=== PATIENT | male | born 1965 | race Caucasian/White ===

== ENCOUNTER 2019-04-15 21:28 | Emergency (ER) | payer BC, OTHER ==
--- NOTE | 2019-04-15 22:26 | EDM.PDOC ---
ED HPI GENERAL MEDICAL PROBLEM - General Chief Complaint: General Stated Complaint: Anxiety, Heart skipping beats Time Seen by Provider: 04/15/19 21:40 History Limitations: Reports: No Limitations - History of Present Illness INITIAL COMMENTS - FREE TEXT/NARRATIVE: Patient presented to the ED because of anxiety and he feels skip beats. Denies any palpitations,headache, dizziness. He just want to be checked. He drinks 3 cups of coffee a day and smokes almost a PPD. - Related Data Allergies Allergy/AdvReac Type Severity Reaction Status Date / Time Penicillins Allergy Hives Verified 04/15/19 22:00 Home Meds: Home Meds NK [No Known Home Meds] 04/15/19 [History] Past Medical History - Past Surgical History GI Surgical History: Reports: Appendectomy Musculoskeletal Surgical History: Reports: Other (See Below) Other Musculoskeletal Surgeries/Procedures:: Surgery on left knee. Social & Family History - Tobacco Use Smoking Status *Q: Current Every Day Smoker Years of Tobacco use: 25 Packs/Tins Daily: 0.5 - Recreational Drug Use Recreational Drug Use: No ED ROS GENERAL - Review of Systems Review Of Systems: See Below Constitutional: Reports: No Symptoms HEENT: Reports: No Symptoms Respiratory: Reports: No Symptoms Cardiovascular: Reports: Other. Denies: Chest Pain, Dyspnea on Exertion, Lightheadedness, Palpitations (skip beats) Endocrine: Reports: No Symptoms GI/Abdominal: Reports: No Symptoms : Reports: No Symptoms Musculoskeletal: Reports: No Symptoms Skin: Reports: No Symptoms Neurological: Reports: No Symptoms Psychiatric: Reports: No Symptoms Hematologic/Lymphatic: Reports: No Symptoms Immunologic: Reports: No Symptoms ED EXAM, GENERAL - Physical Exam Exam: See Below Exam Limited By: No Limitations General Appearance: Alert, WD/WN, No Apparent Distress Eye Exam: Bilateral Eye: PERRL Back Exam: Normal Inspection, Full Range of Motion Extremities: Normal Inspection, Normal Range of Motion, Non-Tender Neurological: Alert, Oriented, CN II-XII Intact, Normal Cognition, Normal Gait, Normal Reflexes, No Motor/Sensory Deficits Psychiatric: Normal Affect, Normal Mood Skin Exam: Warm, Dry, Intact, Normal Color Lymphatic: No Adenopathy Course - Vital Signs Text/Narrative:: labs reviewed and discussed with patient I told him to cut on his caffeine intake, nicotine and to be treated for his anxiety Last Recorded V/S: Last Vital Signs Temp 36.6 C 04/15/19 21:30 Pulse 74 04/15/19 22:00 Resp 18 04/15/19 22:00 BP 143/79 H 04/15/19 22:00 Pulse Ox 97 04/15/19 22:00 - Orders/Labs/Meds Orders: Active Orders 24 hr Category Date Time Status EKG Documentation Completion [RC] ASDIRECTED Care 04/15/19 21:45 Active EKG 12 Lead [EK] Routine Ther 04/15/19 21:45 Ordered Departure - Departure Time of Disposition: 22:25 Disposition: Home, Self-Care 01 Condition: Good Clinical Impression: PVCs (premature ventricular contractions) - Discharge Information Instructions: Premature Ventricular Contraction Referrals: Fide Villarreal [employer]W LEADER [Primary Care Provider] - Forms: ED Department Discharge Additional Instructions: please read discharge instructions on PVC's Avoid caffeine,nicotine,alcohol If you have problem with anxiety follow up with your doctor so he can manage your anxiety with medications - My Orders Last 24 Hours: My Active Orders 04/15/19 21:45 EKG Documentation Completion [RC] ASDIRECTED EKG 12 Lead [EK] Routine - Assessment/Plan Last 24 Hours: My Active Orders 04/15/19 21:45 EKG Documentation Completion [RC] ASDIRECTED EKG 12 Lead [EK] Routine
== END 2019-04-15 22:40 | disposition home or self-care (01) ==
LOC: FB.ED 21:28
DX: I49.3 Ventricular premature depolarization (principal); F17.210 Nicotine dependence, cigarettes, uncomplicated; Z88.0 Allergy status to penicillin
CPT/HCPCS: 93005; 99283-25

== ENCOUNTER 2019-06-16 06:20 | Day surgery (SDC) | payer BC ==
[2019-06-16] MEDS ORDERED: Propofol 200 MG/20 ML SDV IV ONE (06:21)
[2019-06-16] MEDS ORDERED: Glycopyrrolate 0.2 MG/ML 5 ML MDV IV ONE (06:21)
[2019-06-16] MEDS ORDERED: Lidocaine 1% PF 2 ML SDV INJECT ONE (06:21)
[2019-06-16] MEDS ORDERED: Sodium Chloride 0.9% 10 ML Syringe FLUSH PRN (06:45)
[2019-06-16] MEDS: Lactated Ringers 1,000 ML IV SCH ×2 (07:15→09:16)
--- NOTE | 2019-06-16 08:10 | PREOP ---
ADMISSION DATE: 06/16/2019 CHIEF COMPLAINT: Need for followup colonoscopy, history of hemorrhoids. INDICATIONS FOR PROCEDURE: This is a patient who follows up for colonoscopy. His last one was 10 years, it was negative. Does note some occasional swelling of hemorrhoidal tissue with spotting. No significant GI issues. His family history was negative. MEDICATIONS: 1. Vitamin D2 5000 units 1 time a week. 2. Kenalog cream 0.1% applied to the affected area 2 times a day. 3. Thera-M tablets 1 time per day. 4. He has an albuterol inhaler 108/90 base mcg per use 2 puffs every 4 to 6 hours as needed for shortness of breath. ALLERGIES: He has an allergy to penicillin which results in hives. PAST MEDICAL HISTORY: He has a significant medical history for tobacco use and situational anxiety. PAST SURGICAL HISTORY: Significant for appendectomy, cholecystectomy, esophagogastroduodenoscopy, and knee arthroscopy. REVIEW OF SYSTEMS: HEENT: The patient notes some occasional runny nose. Otherwise HEENT is negative. Eyes: Negative. RESPIRATORY: Negative. CARDIOVASCULAR: Negative. GASTROINTESTINAL: Occasional spotting. GENITOURINARY: Positive for some difficulty with urination. ALLERGIES: He has environmental allergies. NEUROLOGIC: Negative. PHYSICAL EXAMINATION: GENERAL: This is a well-developed, well-nourished white male, appearing in no acute distress. VITAL SIGNS: Stable. He is afebrile. HEENT: Grossly within normal limits. LUNGS: Clear to auscultation. HEART: Had a regular rate and rhythm. ABDOMEN: Soft, nontender. ASSESSMENT: History of hemorrhoids. Need for colonoscopy screening. PLAN: C-scope procedure and risks explained to the patient to include bleeding, perforation, and infection. The patient expresses understanding and asked us to proceed. /[id number] /MODL
--- NOTE | 2019-06-16 08:25 | PCM.OPNOTE ---
- General Post-Op/Procedure Note Date of Surgery/Procedure: 06/16/19 Operative Procedure(s): c scope Findings: grade 3 hemorrhoids Pre Op Diagnosis: screening. hx of hemorrhoids Post-Op Diagnosis: grade 3 hemorrhoids Anesthesia Technique: MAC Primary Surgeon: Josue Olvera Anesthesia Provider: Davion Gill Pathology: none Complications: None Condition: Good Free Text/Narrative:: see dictation
--- NOTE | 2019-06-16 11:06 | OR ---
DATE OF OPERATION: 06/16/2019 SURGEON: Josue Olvera MD PROCEDURE PERFORMED: Colonoscopy. PREOPERATIVE DIAGNOSIS: Personal history of hemorrhoids as well as need for colon cancer screening. POSTOPERATIVE DIAGNOSIS: Grade 3 hemorrhoids. INDICATIONS FOR PROCEDURE: This is a 53-year-old white male who presents for his 10-year screening colonoscopy. He also has a history of some issue with some spotting per rectum, which is felt to be secondary to his known hemorrhoidal disease. He was offered and accepted colonoscopy. DESCRIPTION OF OPERATION: After an excellent IV sedation was administered, digital rectal exam was performed. Flexible colonoscope was inserted and advanced to the cecum. Prep was excellent. Following findings were noted. Ascending colon, unremarkable. Transverse colon, unremarkable. Descending colon, unremarkable. Sigmoid and rectum, unremarkable. Anus appears to have grade 3 hemorrhoids. The patient tolerated the procedure well. RECOMMENDATIONS: Follow up for anoscopy and possible hemorrhoid pending. Otherwise, repeat colonoscopy in 10 years. /[id number] /MODL
== END 2019-06-16 09:32 | disposition home or self-care (01) ==
LOC: FB.SDS 06:20
PROVIDERS: ATTEND Surgery
DX: Z12.11 Encounter for screening for malignant neoplasm of colon (principal); K64.2 Third degree hemorrhoids; Z87.19 Personal history of other diseases of the digestive system; Z88.0 Allergy status to penicillin; Z90.49 Acquired absence of other specified parts of digestive tract
CPT/HCPCS: 45378; J2001; J2704; J3490; J7120

== ENCOUNTER 2019-08-14 07:53 | Emergency (ER) | payer BC ==
--- NOTE | 2019-08-14 09:17 | EDM.PDOC ---
ED HPI GENERAL MEDICAL PROBLEM - General Chief Complaint: Cardiovascular Problem Stated Complaint: LEFT ARM DISCOMFORT TENSION IN NECK - Related Data Allergies Allergy/AdvReac Type Severity Reaction Status Date / Time Penicillins Allergy Hives Verified 06/16/19 07:01 Home Meds: Home Meds Multivitamin [Multi-Vitamin Daily] 1 each PO DAILY 06/12/19 [History] Triamcinolone Acetonide [Triamcinolone Acetonide 0.1% Crm] 1 applic TOP BID PRN 06/12/19 [History] Past Medical History HEENT History: Reports: None Cardiovascular History: Reports: None Respiratory History: Reports: Sleep Apnea Gastrointestinal History: Reports: Hemorrhoids Other Gastrointestinal History: HIATAL HERNIA Genitourinary History: Reports: None Neurological History: Reports: None Psychiatric History: Reports: Anxiety Endocrine/Metabolic History: Reports: None Hematologic History: Reports: None Immunologic History: Reports: None Oncologic (Cancer) History: Reports: None Dermatologic History: Reports: None - Infectious Disease History Infectious Disease History: Reports: Chicken Pox - Past Surgical History Head Surgeries/Procedures: Reports: None HEENT Surgical History: Reports: None GI Surgical History: Reports: Appendectomy, Colonoscopy, EGD Male Surgical History: Reports: None Musculoskeletal Surgical History: Reports: Arthroscopic Knee Social & Family History - Tobacco Use Smoking Status *Q: Current Every Day Smoker Years of Tobacco use: 30 Packs/Tins Daily: 0.2 - Caffeine Use Caffeine Use: Reports: Tea - Recreational Drug Use Recreational Drug Use: No Course - Vital Signs Last Recorded V/S: Last Vital Signs Temp 36.4 C 08/14/19 08:06 Pulse 57 L 08/14/19 09:45 Resp 15 08/14/19 09:45 BP 123/81 08/14/19 09:45 Pulse Ox 99 08/14/19 09:45 - Orders/Labs/Meds Orders: Active Orders 24 hr Category Date Time Status EKG Documentation Completion [RC] ASDIRECTED Care 08/14/19 08:47 Active EKG 12 Lead [EK] Routine Ther 08/14/19 08:47 Ordered Labs: Laboratory Tests 08/14/19 08/14/19 08/14/19 Range/Units 08:40 08:40 08:40 WBC 7.0 (4.5-12.0) X10-3/uL RBC 4.92 (4.30-5.75) x10(6)uL Hgb 15.4 (13.5-17.8) g/dL Hct 44.9 (30.0-51.3) % MCV 91.4 (80-96) fL MCH 31.2 (27.7-33.6) pg MCHC 34.2 (32.2-35.4) g/dL RDW 12.3 (11.5-15.5) % Plt Count 243 (125-369) X10(3)uL MPV 7.8 (7.4-10.4) fL Neut % (Auto) 77.0 (46-82) % Lymph % (Auto) 16.1 (13-37) % [place] % (Auto) 5.5 (4-12) % Eos % (Auto) 1 (1.0-5.0) % Baso % (Auto) 1 (0-2) % Neut # (Auto) 5.4 (1.6-8.3) # Lymph # (Auto) 1.1 (0.6-5.0) # [place] # (Auto) 0.4 (0.0-1.3) # Eos # (Auto) 0.1 (0.0-0.8) # Baso # (Auto) 0.0 (0.0-0.2) # Sodium 141 (135-145) mmol/L Potassium 4.1 (3.5-5.3) mmol/L Chloride 108 (100-110) mmol/L Carbon Dioxide 26 (21-32) mmol/L BUN 17 (7-18) mg/dL Creatinine 1.0 (0.70-1.30) mg/dL Est Cr Clr Drug Dosing 83.47 mL/min Estimated GFR (MDRD) > 60 (>60) BUN/Creatinine Ratio 17.0 (9-20) Glucose 101 (80-116) mg/dL Calcium 8.7 (8.6-10.2) mg/dL Troponin I 6.3 (4.0-60.3) pg/mL Departure - Departure Time of Disposition: 09:45 Disposition: Home, Self-Care 01 Condition: Good Clinical Impression: Atypical chest pain, Anxiety reaction Instructions: Generalized Anxiety Disorder, Adult, Nonspecific Chest Pain, Easy -to-Read Referrals: Gabriel Carson MD [Primary Care Provider] - Forms: ED Department Discharge Additional Instructions: Please read discharge instructions an atypical chest karlie(chest pain that is not cardiac related) Quit worrying Quit taking ginseng, side effect profile mentioned about insomnia,palpitations, anxiety etc 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
--- NOTE | 2019-08-14 09:23 | EDM.PDOC ---
ED HPI GENERAL MEDICAL PROBLEM - General Chief Complaint: Cardiovascular Problem Stated Complaint: LEFT ARM DISCOMFORT TENSION IN NECK Time Seen by Provider: 08/14/19 08:10 Source of Information: Reports: Patient History Limitations: Reports: No Limitations - History of Present Illness INITIAL COMMENTS - FREE TEXT/NARRATIVE: Patient presented to the ED because of some skip beats and chest pressure which lasted for 30 seconds and it made him anxious. Denies any N/V/dyspnea and diaphoresis. - Related Data Allergies Allergy/AdvReac Type Severity Reaction Status Date / Time Penicillins Allergy Hives Verified 06/16/19 07:01 Home Meds: Home Meds Multivitamin [Multi-Vitamin Daily] 1 each PO DAILY 06/12/19 [History] Triamcinolone Acetonide [Triamcinolone Acetonide 0.1% Crm] 1 applic TOP BID PRN 06/12/19 [History] Past Medical History HEENT History: Reports: None Cardiovascular History: Reports: None Respiratory History: Reports: Sleep Apnea Gastrointestinal History: Reports: Hemorrhoids Other Gastrointestinal History: HIATAL HERNIA Genitourinary History: Reports: None Neurological History: Reports: None Psychiatric History: Reports: Anxiety Endocrine/Metabolic History: Reports: None Hematologic History: Reports: None Immunologic History: Reports: None Oncologic (Cancer) History: Reports: None Dermatologic History: Reports: None - Infectious Disease History Infectious Disease History: Reports: Chicken Pox - Past Surgical History Head Surgeries/Procedures: Reports: None HEENT Surgical History: Reports: None GI Surgical History: Reports: Appendectomy, Colonoscopy, EGD Male Surgical History: Reports: None Musculoskeletal Surgical History: Reports: Arthroscopic Knee Social & Family History - Tobacco Use Smoking Status *Q: Current Every Day Smoker Years of Tobacco use: 30 Packs/Tins Daily: 0.2 - Caffeine Use Caffeine Use: Reports: Tea - Recreational Drug Use Recreational Drug Use: No ED ROS GENERAL - Review of Systems Review Of Systems: See Below Constitutional: Reports: No Symptoms HEENT: Reports: No Symptoms Respiratory: Reports: No Symptoms Cardiovascular: Reports: Chest Pain Endocrine: Reports: No Symptoms GI/Abdominal: Reports: No Symptoms : Reports: No Symptoms Musculoskeletal: Reports: No Symptoms Skin: Reports: No Symptoms ED EXAM, GENERAL - Physical Exam Exam: See Below Exam Limited By: No Limitations General Appearance: Alert, No Apparent Distress Ears: Normal External Exam, Normal Canal, Hearing Grossly Normal Nose: Normal Inspection, Normal Mucosa Throat/Mouth: Normal Inspection Head: Atraumatic, Normocephalic Respiratory/Chest: No Respiratory Distress, Lungs Clear, Normal Breath Sounds Cardiovascular: Normal Peripheral Pulses, Regular Rate, Rhythm, No Edema, No JVD GI/Abdominal: Normal Bowel Sounds, Soft, No Organomegaly (Male) Exam: No Hernia, Normal Inspection, Normal Prostate Rectal (Males) Exam: Normal Exam, Normal Rectal Tone, Prostate Normal Back Exam: Normal Inspection, Full Range of Motion Extremities: Normal Inspection, Normal Range of Motion, Non-Tender Neurological: Alert, CN II-XII Intact, Normal Cognition Course - Vital Signs Text/Narrative:: labs/ekg was discussed with patient and verbalized full understanding EKG-NSR Trop-neg Last Recorded V/S: Last Vital Signs Temp 36.4 C 08/14/19 08:06 Pulse 61 08/14/19 09:17 Resp 18 08/14/19 08:06 BP 131/76 08/14/19 09:17 Pulse Ox 99 08/14/19 09:17 - Orders/Labs/Meds Orders: Active Orders 24 hr Category Date Time Status EKG Documentation Completion [RC] ASDIRECTED Care 08/14/19 08:47 Active EKG 12 Lead [EK] Routine Ther 08/14/19 08:47 Ordered Labs: Laboratory Tests 08/14/19 08/14/19 08/14/19 Range/Units 08:40 08:40 08:40 WBC 7.0 (4.5-12.0) X10-3/uL RBC 4.92 (4.30-5.75) x10(6)uL Hgb 15.4 (13.5-17.8) g/dL Hct 44.9 (30.0-51.3) % MCV 91.4 (80-96) fL MCH 31.2 (27.7-33.6) pg MCHC 34.2 (32.2-35.4) g/dL RDW 12.3 (11.5-15.5) % Plt Count 243 (125-369) X10(3)uL MPV 7.8 (7.4-10.4) fL Neut % (Auto) 77.0 (46-82) % Lymph % (Auto) 16.1 (13-37) % [place] % (Auto) 5.5 (4-12) % Eos % (Auto) 1 (1.0-5.0) % Baso % (Auto) 1 (0-2) % Neut # (Auto) 5.4 (1.6-8.3) # Lymph # (Auto) 1.1 (0.6-5.0) # [place] # (Auto) 0.4 (0.0-1.3) # Eos # (Auto) 0.1 (0.0-0.8) # Baso # (Auto) 0.0 (0.0-0.2) # Sodium 141 (135-145) mmol/L Potassium 4.1 (3.5-5.3) mmol/L Chloride 108 (100-110) mmol/L Carbon Dioxide 26 (21-32) mmol/L BUN 17 (7-18) mg/dL Creatinine 1.0 (0.70-1.30) mg/dL Est Cr Clr Drug Dosing 83.47 mL/min Estimated GFR (MDRD) > 60 (>60) BUN/Creatinine Ratio 17.0 (9-20) Glucose 101 (80-116) mg/dL Calcium 8.7 (8.6-10.2) mg/dL Troponin I 6.3 (4.0-60.3) pg/mL Departure - Departure Time of Disposition: 09:15 Disposition: Home, Self-Care 01 Condition: Good Clinical Impression: Atypical chest pain, Anxiety reaction Instructions: Generalized Anxiety Disorder, Adult, Nonspecific Chest Pain, Easy -to-Read Referrals: Gabriel Carson MD [Primary Care Provider] - Forms: ED Department Discharge Additional Instructions: Please read discharge instructions an atypical chest karlie(chest pain that is not cardiac related) Quit worrying Quit taking ginseng, side effect profile mentioned about insomnia,palpitations, anxiety etc 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
== END 2019-08-14 10:15 | disposition home or self-care (01) ==
LOC: FB.ED 07:53
DX: R07.89 Other chest pain (principal); F41.9 Anxiety disorder, unspecified; F17.210 Nicotine dependence, cigarettes, uncomplicated; Z88.0 Allergy status to penicillin
CPT/HCPCS: 36415; 80048; 84484; 85025; 93005; 99285-25

== ENCOUNTER 2024-10-24 01:41 | Emergency (ER) | payer BC ==
[2024-10-24] MEDS ORDERED: Sodium Chloride 0.9% 10 ML Syringe FLUSH PRN (01:58)
[2024-10-24 02:16] LABS: BASOPHILS ABSOLUTE AUTO 0.1 x10-3/uL (0.0-0.3); EOSINOPHILS ABSOLUTE AUTO 0.3 x10-3/uL (0.0-0.6); EOSINOPHILS PERCENT AUTO 2.9 % (0.1-6.8); HEMATOCRIT 44.8 % (38.3-50.1); HEMOGLOBIN 15.6 g/dL (12.9-17.7); LYMPHOCYTES ABSOLUTE AUTO 2.6 x10-3/uL (0.5-4.5); LYMPHOCYTES PERCENT AUTO 29.9 % (15.8-45.3); MEAN CORPUSCULAR HEMOGLOBIN 31.5 pg (27.0-33.3); MEAN CORPUSCULAR HGB CONC 34.8 g/dL (28.7-35.3); MEAN CORPUSCULAR VOLUME 90.5 fL (80.8-98.7); MONOCYTES PERCENT AUTO 11.7 % (5.5-15.2); NEUTROPHILS ABSOLUTE AUTO 4.8 x10-3/uL (1.7-6.9); NEUTROPHILS PERCENT AUTO 54.5 % (40.3-71.8); PLATELET COUNT,PLT 201 x10(3)uL (117-477); RED BLOOD CELL COUNT 4.95 x10(6)uL (3.90-5.90); RED CELL DISTRIBUTION WIDTH 13.5 % (12.4-15.0); WHITE BLOOD CELL COUNT,WBC 8.8 x10-3/uL (3.2-10.1)
[2024-10-24 02:22] LABS: BLOOD UREA NITROGEN,BUN 13 mg/dL (7-18); BUN/CREATININE RATIO 11.8 (9-20); CALCIUM 8.9 mg/dL (8.6-10.2); CARBON DIOXIDE,CO2 26 mmol/L (21-32); CHLORIDE,CL 107 mmol/L (100-110); CREATININE 1.1 mg/dL (0.70-1.30); ESTIMATED GFR 77 mL/min (>60); GLUCOSE RANDOM 105 mg/dL (80-116); POTASSIUM,K 3.5 mmol/L (3.5-5.3); SODIUM,NA 140 mmol/L (135-145)
[2024-10-24 02:27] LABS: A/G RATIO 1.1; ALANINE AMINOTRANSFERASE,ALT 21 U/L (12-36); ALBUMIN 3.7 g/dL (3.2-4.6); ALKALINE PHOSPHATASE 78 IU/L (56-112); ASPARTATE AMNIOTRANSFERASE,AST 16 IU/L (5-25); BILIRUBIN TOTAL 0.6 mg/dL (0.1-1.3)
[2024-10-24 02:30] LABS: TROPONIN I 6.6 pg/mL (4.0-60.3)
[2024-10-24 02:32] LABS: C-REACTIVE PROTEIN < 0.50 mg/dL (<0.50)
== END 2024-10-24 03:30 | disposition home or self-care (01) ==
LOC: FB.ED 01:41
DX: R03.0 Elevated blood-pressure reading, without diagnosis of hypertension (principal); Z88.0 Allergy status to penicillin; Z79.899 Other long term (current) drug therapy; Z90.49 Acquired absence of other specified parts of digestive tract
CPT/HCPCS: 71045; 80053; 84484; 85025; 85379; 86140; 93005; 99285